=== PATIENT | female | born 1945 | race Caucasian/White ===

== ENCOUNTER 2022-03-03 20:27 | Emergency (ER) | payer MEDICARE, BC ==
[2022-03-03] MEDS ORDERED: Sodium Chloride 0.9% 500 ML 500 ML IV ONE (20:28)
[2022-03-03] MEDS ORDERED: TRANEXAMIC ACID 1000 MG/10 ML TP ONE (20:28)
[2022-03-03] MEDS ORDERED: Sodium Chloride 0.9% 1000 ML 1,000 ML IV STA (20:37)
[2022-03-03] MEDS ORDERED: Zofran 4 MG/2 ML VIAL IV ONE (20:37)
[2022-03-03] MEDS ORDERED: SUBLIMAZE 100 MCG/2 ML ONE ×3 (20:40→22:02)
[2022-03-03] MEDS ORDERED: Zofran 4 MG/2 ML VIAL ONE ×2 (20:40→22:02)
[2022-03-03 20:42] LABS: Absolute Neutrophil Ct (ANC) 9.54 (1.4-6.9); Basophil (Absolute #) 0.03 (0-0.4); Eosinophil (Absolute #) 0.12 (0-0.5); Hemoglobin 13.3 gm/dl (12.0-16.0); Lymphocyte (Absolute #) 1.93 (1.0-4.6); Lymphocytes % 15.6 % (24.0-44.0); Mean Cell Volume 89.8 fl (78-100); Mean Corpuscular Hemoglobin 27.8 pg (26-32); Mean Corpuscular Hgb Concent. 30.9 g/dl (32-36); Monocyte (Absolute #) 0.76 (0.0-1.3); Monocytes % 6.1 % (0.0-12.0); Neutrophil % 77.1 % (36.0-66.0); Platelet Count 241 K/mm3 (150-450); Red Blood Count 4.79 M/mm3 (4.1-5.4); Red Cell Distribution Width 14.7 % (11.5-14.0); White Blood Count 12.4 K/mm3 (4.0-10.5)
[2022-03-03 20:48] LABS: INR 1.31 (0.8-3.0); PROTIME 15.4 SECONDS (9.4-12.5)
[2022-03-03 20:50] LABS: PTT 30.4 SECONDS (25.1-36.5)
[2022-03-03 20:52] LABS: ALBUMIN 3.7 g/dL (3.5-5.0); ALKALINE PHOSPHATASE 70 U/L (38-126); ANION GAP 15.4 MEQ/L (5-15); BLOOD UREA NITROGEN 16 mg/dL (7-17); CHLORIDE 101 mmol/L (98-107); Calcium 8.4 mg/dL (8.4-10.2); Carbon Dioxide 21 mmol/L (22-30); Creatinine 1 0.75 mg/dL (0.52-1.04); EST GLOMERULAR FILTRATION RATE > 60.0 ML/MIN; Glucose 129 mg/dL (74-106); Potassium 4.5 mmol/L (3.5-5.1); SGOT/AST 28 U/L (14-36); SGPT/ALT 16 U/L (0-35); SODIUM 133 mmol/L (137-145); Total Protein 6.5 g/dL (6.3-8.2)
--- NOTE | 2022-03-03 21:06 | ERPHSYRPT ---
- History of Present Illness Time Seen by Provider: 03/03/22 20:37 Source: patient, EMS Exam Limitations: no limitations Physician History: 76 years old female with history of atrial fibrillation on Eliquis/aspirin, epistaxis in the past needing extensive cauterization by Dr. Molina at [facility] almost 2 years ago presented in the ER with nasal bleed which started earlier around noon time, lasted for 20 minutes and improved and again almost 45 minutes to an hour prior to arrival with almost a liter blood loss per EMS and patient was feeling dizzy lightheaded and going in and out of consciousness prior to arrival in the ER. Denies any nasal trauma. No chest pain palpitations or shortness of breath. Timing/Duration: abrupt onset, hours (1) Severity: severe ENT Location: nose Prearrival Treatment: squeezing nostrils Modifying Factors: Improves With: nothing Associated Symptoms: dizziness Allergies/Adverse Reactions: erythromycin base Allergy (Verified 03/03/22 20:38) Sulfa (Sulfonamide Antibiotics) Allergy (Verified 03/03/22 20:38) - Review of Systems Constitutional: Fatigue, Weakness Eyes: No Symptoms Ears, Nose, & Throat: Nose Pain, Epistaxis Respiratory: No Symptoms Cardiac: No Symptoms Abdominal/Gastrointestinal: No Symptoms Genitourinary Symptoms: No Symptoms Musculoskeletal: No Symptoms Skin: No Symptoms Neurological: Dizziness Psychological: No Symptoms Endocrine: No Symptoms Hematologic/Lymphatic: No Symptoms Immunological/Allergic: No Symptoms - Past Medical History Neurological History: No Pertinent History Cardiac History: Arrhythmia, Coronary Artery Disease, High Cholesterol, Hypertension Respiratory History: No Pertinent History Endocrine Medical History: No Pertinent History Musculoskeletal History: Osteoarthritis Other Medical History: HX WONG TKA 01/2014. NOVEMBER 2018 HAD STRESS TEST AND HAD TO HAVE HEART CATH 11/26/18 "FAILED" AND HAD OPEN HEART CABG X 5 12/10/18. FINISHING CARDIAC REHAB NEXT WEEK. HX MALIGNANT MELANOMA. LUMBAR SURGERY FOR ALL 5 VERTEBRA 2012 "CLEANED OUT ARTHRITIS" - Nursing Vital Signs Nursing Vital Signs: Initial Vital Signs Temperature 97.4 F 03/03/22 20:28 Pulse Rate 74 03/03/22 20:28 Respiratory Rate 20 03/03/22 20:28 Blood Pressure 99/66 03/03/22 20:28 O2 Sat by Pulse Oximetry 93 L 03/03/22 20:28 Pain Scale Pain Intensity 6 - Physical Exam General Appearance: no apparent distress, alert, anxiety Eye Exam: bilateral eye: normal inspection, PERRL, EOMI Ear Exam: bilateral ear: auricle normal, canal normal Nasal Exam: active bleeding (Left side anterior and posterior. No obvious visible bleeding point. No clots.), dried blood Throat Exam: normal, moist mucus membranes (Blood in pharynx) Neck Exam: normal inspection, supple, full range of motion Cardiovascular/Respiratory Exam: normal breath sounds, heart sounds normal, irregularly irregular Neurologic Exam: alert, oriented x 3, cooperative, sensation nml Skin Exam: normal color SpO2 Interpretation: normal SpO2: 96 O2 Delivery: Room Air Procedures - Additional Procedures Progress: Procedure note. Time 2029. Date 03/03/2022. Left anterior and posterior epistaxis. Packing with rapid Rhino Rocket. Bleeding improved. Patient tolerated procedure very well. - Course EKG Interpreted by Me: RATE (80), A-fib Ordered Tests: Active Orders 24 hr Category Date Time Status Centralized Traffic Control Operator STAT Care 03/03/22 20:51 Active EKG-ER Only STAT Care 03/03/22 20:51 Active Epistaxis Set Up STAT Care 03/03/22 20:37 Active IV Insertion STAT Care 03/03/22 20:37 Active IV Insertion-2nd Peripheral STAT Care 03/03/22 20:51 Active Re-Check Vital Signs STAT Care 03/03/22 20:37 Active CBC W DIFF Stat Lab 03/03/22 20:39 Completed CMP Stat Lab 03/03/22 20:39 Received PROTIME WITH INR Stat Lab 03/03/22 20:39 Completed PTT Stat Lab 03/03/22 20:39 Completed Medication Summary Generic Name Dose Route Start Last Admin Trade Name Freq PRN Reason Stop Dose Admin Sodium Chloride 1,000 mls @ 999 mls/hr 03/03/22 20:37 Sodium Chloride 0.9% 1000 Ml IV 03/03/22 21:37 .Q1H1M STA Discontinued Medications Generic Name Dose Route Start Last Admin Trade Name Freq PRN Reason Stop Dose Admin Fentanyl Citrate Confirm 03/03/22 20:40 Fentanyl Citrate 100 Mcg/2 Ml* Vial Administered 03/03/22 20:41 Dose 100 mcg .ROUTE .STK-MED ONE Ondansetron HCl 4 mg 03/03/22 20:37 Ondansetron Hcl 4 Mg/2 Ml Vial IV 03/03/22 20:38 STAT ONE Ondansetron HCl Confirm 03/03/22 20:40 Ondansetron Hcl 4 Mg/2 Ml Vial Administered 03/03/22 20:41 Dose 4 mg .ROUTE .[facility]-MED ONE Lab/Rad Data: Laboratory Result Diagrams 03/03/22 20:39 03/03/22 20:39 Laboratory Results 03/03/22 03/03/22 03/03/22 Range/Units 20:39 20:39 20:39 WBC 12.4 H (4.0-10.5) K/mm3 RBC 4.79 (4.1-5.4) M/mm3 Hgb 13.3 (12.0-16.0) gm/dl Hct 43.0 (35-47) % MCV 89.8 (78-100) fl MCH 27.8 (26-32) pg MCHC 30.9 L (32-36) g/dl RDW 14.7 H (11.5-14.0) % Plt Count 241 (150-450) K/mm3 MPV 11.0 (7.5-11.0) fl Gran % 77.1 H (36.0-66.0) % Eos # (Auto) 0.12 (0-0.5) Absolute Lymphs (auto) 1.93 (1.0-4.6) Absolute Monos (auto) 0.76 (0.0-1.3) Lymphocytes % 15.6 L (24.0-44.0) % Monocytes % 6.1 (0.0-12.0) % Eosinophils % 1.0 (0.00-5.0) % Basophils % 0.2 (0.0-0.4) % Absolute Granulocytes 9.54 H (1.4-6.9) Basophils # 0.03 (0-0.4) PT 15.4 H (9.4-12.5) SECONDS INR 1.31 (0.8-3.0) APTT 30.4 (25.1-36.5) SECONDS Sodium 133 L (137-145) mmol/L Potassium 4.5 (3.5-5.1) mmol/L Chloride 101 (98-107) mmol/L Carbon Dioxide 21 L (22-30) mmol/L Anion Gap 15.4 H (5-15) MEQ/L BUN 16 (7-17) mg/dL Creatinine 0.75 (0.52-1.04) mg/dL Estimated GFR > 60.0 ML/MIN Glucose 129 H (74-106) mg/dL Calcium 8.4 (8.4-10.2) mg/dL Total Bilirubin 1.40 H (0.2-1.3) mg/dL AST 28 (14-36) U/L ALT 16 (0-35) U/L Alkaline Phosphatase 70 (38-126) U/L Serum Total Protein 6.5 (6.3-8.2) g/dL Albumin 3.7 (3.5-5.0) g/dL - Progress Progress: improved, re-examined Progress Note: 03/03/22 21:06 76 years old is evaluated for left sided nasal bleed. She is promptly packed with Rhino Rocket anterior/posterior and bleeding is improved. Given fluid bolus and blood pressure is currently 113/70s. Patient is feeling much better. No ENT services available at [facility]/when seen and called [facility] ENT, discussed with Dr. Meza, reviewed history, work-up and recommended transfer to [facility]. I have discussed with Dr. Davis at [facility] and patient is excepted for transfer. Plan discussed with patient and family who understand and agree with it. Discussed with : Other Counseled pt/family regarding: diagnosis - Departure Departure Disposition: Transfer Clinical Impression: Epistaxis Condition: Stable Critical Care Time: Yes Critical Care Time(excluding separately billable procedures): Critical 30-74 mins Referrals: CARLOS JOHN Jr. [Primary Care Provider] - Follow up/PCP as directed
[2022-03-03] MEDS ORDERED: Sodium Chloride 0.9% 1000 ML 1,000 ML ONE (21:27)
[2022-03-03 21:28] VITALS: BP 121/60; PULSE 82; O2SAT 98
[2022-03-03] MEDS ORDERED: Sodium Chloride 0.9% 1000 ML 1,000 ML IV SCH (21:30)
[2022-03-03] MEDS ORDERED: NEOSYNEPHRINE 0.5% NASAL SPRAY/DROPS ONE (21:33)
[2022-03-03] MEDS ORDERED: NEOSYNEPHRINE 0.5% NASAL SPRAY/DROPS NS ONE (21:34)
[2022-03-03 22:03] LABS: ABO TYPING AB; Antibody Screen NEGATIVE (NEGATIVE); RH TYPING POSITIVE
[2022-03-03] MEDS ORDERED: Reglan 10 MG/2 ML ONE (22:10)
[2022-03-03] MEDS ORDERED: Reglan 10 MG/2 ML IV ONE (22:10)
== END 2022-03-03 22:23 | disposition short-term general hospital (02) ==
LOC: ED 20:27
DX: R04.0 Epistaxis (principal); R42 Dizziness and giddiness; E78.5 Hyperlipidemia, unspecified; I10 Essential (primary) hypertension; Z79.01 Long term (current) use of anticoagulants
CPT/HCPCS: 30905; 36000; 36415; 80053; 85025; 85610; 85730; 86850; 86900; 86901; 93005; 93041; 96374; 96375; 99285; 99291; J2405; J3010; A9270-GY